=== PATIENT | male | born 1995 | race Caucasian/White ===

== ENCOUNTER 2018-08-20 09:01 | Emergency (ER) | payer BC ==
[~2018-08-20] VITALS: Ht 172.7 cm; Wt 69.7 kg
[2018-08-20 09:07] VITALS: BP 126/69; PULSE 57; RESP 18; Ht 172.7 cm; Wt 69.7 kg
[2018-08-20] MEDS ORDERED: IBUP800T48 PO (09:28)
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
== END 2018-08-20 10:07 | disposition home or self-care (01) ==
LOC: FTE 09:01
DX: S13.4XXA Sprain of ligaments of cervical spine, initial encounter (principal); V49.09XA Driver injured in collision with other motor vehicles in nontraffic accident, initial encounter
CPT/HCPCS: 99283